=== PATIENT | male | born 1965 | race Caucasian/White ===

== ENCOUNTER 2020-01-21 16:34 | Outpatient (CLI) | payer SELFPAY | END 2020-01-21 16:35 | disposition home or self-care (01) | LOC: COV 16:34 | PROVIDERS: ATTEND Family Medicine | DX: R50.9 Fever, unspecified (principal); R53.83 Other fatigue; J02.9 Acute pharyngitis, unspecified; Z20.828 Contact with and (suspected) exposure to other viral communicable diseases | CPT/HCPCS: 81599 ==